=== PATIENT | female | born 1995 | race Caucasian/White ===

== ENCOUNTER 2020-01-07 09:48 | Outpatient (CLI) | payer OTHER ==
--- NOTE | 2020-01-07 11:58 | ULT ---
LIMITED LEFT BREAST ULTRASOUND: Date: 01/07/2020 HISTORY: 24-year-old female with palpable abnormality at the 2 o'clock position of the left breast. FINDINGS: Sonographic evaluation of the region of palpable concern at the 2 o'clock position of the left breast , 7.0 cm from the nipple, demonstrates an oval, nonshadowing, solid appearing hyperechoic mass with e chogenic hilum and flow, consistent with lymph node, which measures 1.3 x 0.5 x 0.7 cm. IMPRESSION: BI-RADS Category 2 - Benign findings. Return to age-appropriate mammographic screening based on risk factors.
== END 2020-01-07 09:49 | disposition home or self-care (01) ==
LOC: BICULT 09:48
PROVIDERS: ATTEND Obstetrics & Gynecology
DX: N63.20 Unspecified lump in the left breast, unspecified quadrant (principal)